=== PATIENT | female | born 1960 | race Hispanic/Latino ===

== ENCOUNTER 2021-01-29 23:12 | Emergency (ER) | payer SELFPAY ==
--- OUTSIDE RECORDS SUMMARY | 2021-01-29 23:15 | XMS REPORT | Continuity of Care Document ---
:1960 Author Organization [facility] t Address [address] [place] [address] Care Team Providers Name Role Phone Joe GABRIEL, Iveth Wooten Attending Clinician Unavailable Mike Boogie Attending Clinician Lit Brower Attending Clinician Darlene HARRINGTON Attending Clinician Salvador BELTRAN S Attending Clinician Problems This patient has no known problems. Allergies, Adverse Reactions, Alerts This patient has no known allergies or adverse reactions. Medications This patient has no known medications. Procedures This patient has no known procedures. Encounters Start End Encounter Admission Attending Care Care Encounter Source Date/Time Date/Time Type Type Clinicians Facility Department ID 2020-04-20 2020-04-20 Letter GYPSY Diaz [id number] 00:00:00 00:00:00 (Out) Iveth FLEMING [id number] [facility] [id number] 2020-04-20 2020-04-20 Telephone GYPSY Boogie [id number] 00:00:00 00:00:00 Carlos Alberto FLEMING [id number] [facility] [id number] 2020-04-19 2020-04-19 Telephone OLGA LIDIA Torres [id number] 00:00:00 00:00:00 Marisol [facility] [id number] Specialty [id number] [place] [id number] [address] 2020-04-15 2020-04-16 Emergency Gilles Colon [facility] [id number] 23:44:00 01:57:00 Juli Franco [id number] [place] [id number] [place] [id number] Results This patient has no known results.
[2021-01-30] MEDS ORDERED: D50W 25 GM/50 ML SYRINGE IV ONE (00:20)
[2021-01-30 00:30] LABS: Protime INR 0.96
[2021-01-30 00:31] LABS: Absolute Lymphocytes (CBC) 3.6 K/uL (0.7-4.9); Basophils % 0.5 % (0-1.3); Hematocrit 29.1 % (36.0-45.0); Lymphocytes % 25.9 % (15.3-44.8); MPV 8.5 fL (7.6-11.3); RBC Red Blood Cell Count 3.56 M/uL (3.86-4.86)
[2021-01-30 00:47] LABS: ALT/SGPT 29 U/L (12-78); AST/SGOT 20 U/L (15-37); Albumin 4.1 g/dL (3.4-5.0); Alkaline Phosphatase 107 U/L (45-117); BUN Blood Urea Nitrogen 31 mg/dL (7-18); Bicarbonate 27 mmol/L (21-32); Bilirubin Direct < 0.1 mg/dL (0-0.2); Bilirubin Total 0.3 mg/dL (0.2-1.0); Magnesium 1.7 mg/dL (1.8-2.4); NT PRO-BNP 196 pg/mL (<125); Potassium 3.8 mmol/L (3.5-5.1); Protein, Total 8.7 g/dL (6.4-8.2); Sodium Level 127 mmol/L (136-145); Troponin (Emerg Dept Use Only) < 0.02 ng/mL (0.0-0.045)
[2021-01-30 00:48] LABS: Glucose Level 47 mg/dL (74-106)
--- NOTE | 2021-01-30 02:22 | EDPHYS ---
Physician Documentation [facility] Name: Belinda Hector Age: 60 yrs Sex: Female : 1960 Arrival Date: 01/29/2021 Time: 23:13 Bed 5 Private MD: Carlos Alberto Boogie ED Physician Elie Ward HPI: 01/30 02:22 This 60 yrs old Female presents to ER via Unassigned with complaints of Low tw4 Blood Sugar, Confusion, Vomiting. 02:22 The patient or guardian reports hypoglycemia. Onset: The symptoms/episode tw4 began/occurred today. Associated signs and symptoms: Pertinent positives: None. Current symptoms: In the emergency department the patient's symptoms are unchanged from the initial presentation. The patient has not experienced similar symptoms in the past. Historical: - Home Meds: 00:15 atorvastatin 10 mg Oral tab 1 tab once daily [Active]; lisinopril 20 mg Oral tab 1 tab lp1 once daily [Active]; metformin 1,000 mg Oral TG24 1 tab 2 times per day [Active]; glyburide 5 mg Oral tab 1 tab 2 times per day [Active]; - PMHx: 00:15 Diabetes - NIDDM; Hypertension; lp1 - Immunization history:: Adult Immunizations up to date. - Social history:: Smoking status: Patient denies any tobacco usage or history of. ROS: 02:22 Constitutional: Negative for fever, chills, and weight loss, Eyes: Negative for injury, tw4 pain, redness, and discharge, Cardiovascular: Negative for chest pain, palpitations, and edema, Respiratory: Negative for shortness of breath, cough, wheezing, and pleuritic chest pain, Back: Negative for injury and pain, MS/Extremity: Negative for injury and deformity. 02:22 Abdomen/GI: Positive for nausea and vomiting, nausea, vomiting, and diarrhea, nausea, vomiting. 02:22 Neuro: Positive for altered mental status. 02:22 Endocrine: Negative for goiter, cold intolerance, heat intolerance, polydipsia, polyphagia, polyuria, weight gain, weight loss. Exam: 02:22 Constitutional: This is a well developed, well nourished patient who is awake, alert, tw4 and in no acute distress. Head/Face: Normocephalic, atraumatic. Chest/axilla: Normal chest wall appearance and motion. Nontender with no deformity. No lesions are appreciated. Cardiovascular: Regular rate and rhythm with a normal S1 and S2. No gallops, murmurs, or rubs. Normal PMI, no JVD. No pulse deficits. Respiratory: Lungs have equal breath sounds bilaterally, clear to auscultation and percussion. No rales, rhonchi or wheezes noted. No increased work of breathing, no retractions or nasal flaring. Abdomen/GI: Soft, non-tender, with normal bowel sounds. No distension or tympany. No guarding or rebound. No evidence of tenderness throughout. Back: No spinal tenderness. No costovertebral tenderness. Full range of motion. Skin: Warm, dry with normal turgor. Normal color with no rashes, no lesions, and no evidence of cellulitis. MS/ Extremity: Pulses equal, no cyanosis. Neurovascular intact. Full, normal range of motion. Neuro: Awake and alert, GCS 15, oriented to person, place, time, and situation. Cranial nerves II-XII grossly intact. Motor strength 5/5 in all extremities. Sensory grossly intact. Cerebellar exam normal. Normal gait. Vital Signs: 01/29 23:46 BP 163 / 83; Pulse 98; Resp 16; Pulse Ox 98% ; iw 01/30 01:30 BP 139 / 80; Pulse 100; Resp 18; Pulse Ox 99% ; ea 02:34 BP 163 / 70; Pulse 100; Resp 18; Pulse Ox 100% ; ea MDM: 01/29 23:52 Patient medically screened. tw4 01/30 02:25 Differential diagnosis: Ming's syndrome, diabetes insipidus, DKA. Data reviewed: tw4 vital signs, nurses notes. Data interpreted: Pulse oximetry: Interpretation: normal. Counseling: I had a detailed discussion with the patient and/or guardian regarding: the historical points, exam findings, and any diagnostic results supporting the discharge/admit diagnosis. Special discussion: I discussed with the patient/guardian in detail that at this point there is no indication for admission to the hospital. It is understood, however, that if the symptoms persist or worsen the patient needs to return immediately for re-evaluation. 01/30 00:01 Order name: Basic Metabolic Panel; Complete Time: 00:52 tw4 01/30 00:01 Order name: CBC with Diff; Complete Time: 01:59 01/30 01:59 Interpretation: Normal except: WBC 13.80; RBC 3.56; HGB 10.3; HCT 29.1. 01/30 00:01 Order name: LFT's; Complete Time: 01:59 01/30 01:59 Interpretation: Normal except: TP 8.7; GLOB 4.6; A/G 0.9. 01/30 00:01 Order name: Magnesium; Complete Time: 01:59 01/30 01:59 Interpretation: Normal except: MG 1.7. 01/30 00:01 Order name: NT PRO-BNP; Complete Time: 01:59 01/30 01:59 Interpretation: Normal except: NT PRO-BNP 196. 01/30 00:01 Order name: PT-INR; Complete Time: 01:59 01/30 01:59 Interpretation: Within normal limits: PT 11.0. 01/30 00:01 Order name: Troponin (emerg Dept Use Only); Complete Time: :59 01/30 02:00 Interpretation: Within normal limits: TROPED < 0.02. 01/30 00:01 Order name: XRAY Chest (1 view) 01/30 00:01 Order name: EKG; Complete Time: 00:02 01/30 00:03 Order name: Glucose, Ancillary Testing; Complete Time: 01:04 [facility] 01/30 00:08 Order name: Glucose, Ancillary Testing [facility] 01/30 00:55 Order name: Glucose, Ancillary Testing [facility] 01/30 02:11 Order name: Glucose, Ancillary Testing [facility] 01/30 00:01 Order name: Cardiac monitoring; Complete Time: 00:46 01/30 00:01 Order name: EKG - Nurse/Tech; Complete Time: 01:16 01/30 00:01 Order name: IV Saline Lock; Complete Time: 00:46 01/30 00:01 Order name: Labs collected and sent; Complete Time: 00:46 01/30 00:01 Order name: O2 Per Protocol; Complete Time: 00:46 01/30 00:01 Order name: O2 Sat Monitoring; Complete Time: 00:46 tw4 EC:41 Rate is 101 beats/min. Rhythm is regular. QRS [place] is Normal. DE interval is normal. tw4 QRS interval is normal. QT interval is normal. No Q waves. T waves are Peaked in leads V3, V4, V5, V6. No ST changes noted. Clinical impression: NSR w/ Non-specific ST/T Changes. Interpreted by me. Reviewed by me. Administered Medications: 00:00 Drug: D50W 50 ml {Note: Verbal order per Dr. Ward.} Route: IVP; Site: right lp1 antecubital; 01:11 Follow up: Response: Blood sugar is elevated lp1 Disposition: 01/30/21 02:22 Discharged to Home. Impression: Hypoglycemia, unspecified, Vomiting, unspecified. - Condition is Stable. - Discharge Instructions: Hypoglycemia, Nausea and Vomiting, Adult. - Prescriptions for Zofran 4 mg Oral Tablet - take 1 tablet by ORAL route every 12 hours As needed; 6 tablet. - Medication Reconciliation Form, Thank You Letter, Antibiotic Education, Prescription Opioid Use form. - Follow up: Carlos Alberto Boogie MD; When: Upon discharge from the Emergency Department; Reason: Recheck today's complaints, Continuance of care, Re-evaluation by your physician. - Problem is new. - Symptoms have improved. Signatures: Dispatcher [employer] EDMS Malena Castorena RN RN lp1 Riley Bush, INTERVENTION NURSE-C INTERVENTION NURSE-Cla1 Rica Carr RN RN ea Wadley, Terrence, MD MD tw4 Corrections: (The following items were deleted from the chart) 02:53 02:22 01/30/2021 02:22 Discharged to Home. Impression: Hypoglycemia, unspecified; ea Vomiting, unspecified. Condition is Stable. Forms are Medication Reconciliation Form, Thank You Letter, Antibiotic Education, Prescription Opioid Use. Follow up: Carlos Alberto Boogie; When: Upon discharge from the Emergency Department; Reason: Recheck today's complaints, Continuance of care, Re-evaluation by your physician. Problem is new. Symptoms have improved. tw4
--- NOTE | 2021-01-30 02:22 | ER ---
Nurse's Notes [facility] Name: Belinda Hector Age: 60 yrs Sex: Female : 1960 Arrival Date: 01/29/2021 Time: 23:13 Bed 5 Private MD: Carlos Alberto Boogie Diagnosis: Hypoglycemia, unspecified;Vomiting, unspecified Presentation: 01/29 23:46 Chief complaint: Patient states: Patient go got confused so they checked her blood iw sugar 42. [place]vier juice given. Tried to eat pizza but then started vomiting. Blood sugar now is 40. 23:46 Acuity: AMARILIS 2 iw 01/30 00:00 Coronavirus screen: At this time, the client does not indicate any symptoms associated ea with coronavirus-19. Ebola Screen: No symptoms or risks identified at this time. Initial Sepsis Screen: Does the patient meet any 2 criteria? No. Patient's initial sepsis screen is negative. Does the patient have a suspected source of infection? No. Patient's initial sepsis screen is negative. Risk Assessment: Do you want to hurt yourself or someone else? Patient reports no desire to harm self or others. Onset of symptoms was January 30, 2021. Historical: - Home Meds: 00:15 atorvastatin 10 mg Oral tab 1 tab once daily [Active]; lisinopril 20 mg Oral tab 1 tab lp1 once daily [Active]; metformin 1,000 mg Oral TG24 1 tab 2 times per day [Active]; glyburide 5 mg Oral tab 1 tab 2 times per day [Active]; - PMHx: 00:15 Diabetes - NIDDM; Hypertension; lp1 - Immunization history:: Adult Immunizations up to date. - Social history:: Smoking status: Patient denies any tobacco usage or history of. Screenin:11 Abuse screen: Denies threats or abuse. Denies injuries from another. Nutritional lp1 screening: No deficits noted. Tuberculosis screening: No symptoms or risk factors identified. Fall Risk Total Harrison Fall Scale indicates High Risk Score (45 or more points). Fall prevention measures have been instituted. Side Rails Up X 2 Family Present and informed to notify staff if the need to leave the bedside As available patient and family educated on Fall Prevention Program and Strategies. Assessment: 00:10 General: Appears ill, Behavior is quiet. Pain: Denies pain. Neuro: Level of lp1 Consciousness is awake, confused, Oriented to person, place. Cardiovascular: Capillary refill < 3 seconds in bilateral fingers toes. Respiratory: Respiratory effort is even, unlabored. GI: Abdomen is non-distended, Patient currently denies nausea. : No signs and/or symptoms were reported regarding the genitourinary system. EENT: No signs and/or symptoms were reported regarding the EENT system. Derm: Skin is intact, Skin is clammy, Skin is pale. Musculoskeletal: No deficits noted. 01:50 Reassessment: Patient and/or family updated on plan of care and expected duration. Pain ea level reassessed. Patient is alert, oriented x 3, equal unlabored respirations, skin warm/dry/pink. 02:13 Reassessment: Patient and/or family updated on plan of care and expected duration. Pain ea level reassessed. Patient is alert, oriented x 3, equal unlabored respirations, skin warm/dry/pink. Pt eating sandwich and jello Patient states feeling better. 02:51 Reassessment: Patient and/or family updated on plan of care and expected duration. Pain ea level reassessed. Patient is alert, oriented x 3, equal unlabored respirations, skin warm/dry/pink. Discharge instruction given to patient verbalized the understanding of instruction. Pt left ED ambulatory tolerating well. Vital Signs: 01/29 23:46 BP 163 / 83; Pulse 98; Resp 16; Pulse Ox 98% ; iw 01/30 01:30 BP 139 / 80; Pulse 100; Resp 18; Pulse Ox 99% ; ea 02:34 BP 163 / 70; Pulse 100; Resp 18; Pulse Ox 100% ; ea ED Course: 01/29 23:13 Patient arrived in ED. es 23:14 Carlos Alberto Boogie MD is Private Physician. es 23:49 Triage completed. iw 23:52 Elie Ward MD is Attending Physician. tw4 01/30 00:00 Inserted saline lock: 20 gauge in right antecubital area, using aseptic technique. lp1 Blood collected. 00:09 Malena Castorena, RN is Primary Nurse. lp1 00:11 Patient has correct armband on for positive identification. Placed in gown. Bed in low lp1 position. Call light in reach. Pulse ox on. NIBP on. 00:15 Arm band placed on right wrist. Patient placed in an exam room, on a stretcher, on ea pulse oximetry. 00:41 XRAY Chest (1 view) In Process Unspecified. EDMS 02:20 Carlos Alberto Boogie MD is Referral Physician. tw4 02:35 No provider procedures requiring assistance completed. ea 02:51 IV discontinued, intact, bleeding controlled, No redness/swelling at site. Pressure ea dressing applied. Administered Medications: 00:00 Drug: D50W 50 ml {Note: Verbal order per Dr. Ward.} Route: IVP; Site: right lp1 antecubital; 01:11 Follow up: Response: Blood sugar is elevated lp1 Outcome: 02:22 Discharge ordered by . tw4 02:50 Discharged to home ambulatory, with family. ea 02:50 Condition: stable 02:50 Discharge instructions given to patient, Instructed on discharge instructions, follow up and referral plans. Demonstrated understanding of instructions, Prescriptions given X 1. 02:53 Patient left the ED. ea Signatures: Dispatcher [employer] Sharon Ross Irene, RN NERY Malena Castorena RN RN lp1 Rica Carr RN RN Elie Galicia MD MD tw4
[2021-01-30 03:10] VITALS: BP 163/70; O2SAT 100
--- NOTE | 2021-01-30 10:30 | RAD REPORT ---
EXAM DESCRIPTION: Nena Single View01/30/2021 12:41 am CLINICAL HISTORY: Vomiting COMPARISON: 2017 FINDINGS: The lungs appear clear of acute infiltrate. The heart is normal size IMPRESSION: No acute abnormalities displayed
--- NOTE | 2021-02-01 12:04 | EKG ---
Test Date: 2021-01-30 Test Time: 01:11:32 Signaling Design Engineer: SABINO MEASUREMENT RESULTS: Intervals: Rate: 101 [place]: 130 QRSD: 114 QT: 358 QTc: 464 [place]: P: 50 [place]: 130 QRS: 10 T: 47 INTERPRETIVE STATEMENTS: Sinus tachycardia Incomplete right bundle branch block Possible Inferior infarct, age undetermined Abnormal ECG Compared to ECG 10/31/2017 20:13:31 Incomplete right bundle-branch block now present Myocardial infarct finding now present Right bundle-branch block no longer present Electronically Signed On 02-01-21 11:54:53 CDT by Nba Castillo
== END 2021-01-30 02:53 | disposition home or self-care (01) ==
LOC: ER 23:12
DX: E11.649 Type 2 diabetes mellitus with hypoglycemia without coma (principal); I10 Essential (primary) hypertension
CPT/HCPCS: 36415; 71045; 80048; 80076; 82947; 83735; 83880; 84484; 85025; 85610; 93005; 96374; 99284

== ENCOUNTER 2022-01-27 23:11 | Emergency (ER) | payer SELFPAY ==
--- OUTSIDE RECORDS SUMMARY | 2022-01-27 23:14 | XMS REPORT | Continuity of Care Document ---
:1960 [address] [facility] Address [address] [place] [address] Care Team Providers Name Role Phone Iveth Diaz RN Attending Clinician Unavailable Mike Boogie Attending Clinician Brian HARRINGTON, F Attending Clinician Ana ROSEP Attending Clinician Salvador BELTRAN S Attending Clinician ANA Attending Clinician Unavailable Problems Condition Condition Condition Status Onset Resolution Last Treating Co mments Source Name Details Category Date Date Treatment Clinician Date No known No known Disease Unive rs active active ity of problems problems [facility] Allergies, Adverse Reactions, Alerts Allergy Allergy Status Severity Reaction(s) Onset Inactive Treating Comm ents Source Name Type Date Date Clinician NO KNOWN Drug Active Univers ALLERGIE Class ity of [facility] Social History Social Habit Start Date Stop Date Quantity Comments Source [facility] to SARS-CoV-2 Not sure [facility] [place] (event) [facility] Smoking Status Start Date Stop Date Source Unknown if ever smoked [facility]it y [facility] Medications Ordered Filled Start Stop Current Ordering Indication Dosage Frequency Signature Comments Components Source Medication Medication Date Date Medication? Clinician (SIG) Name Name No known No Univers medications [facility] No known No Univers medications [facility] No known No Univers medications [facility] No known No Univers medications [facility] Vital Signs Vital Name Observation Time Observation Value Comments Source Systolic blood 2020-04-16 06:41:30 139 mm[Hg] Univer sity of [facility] Diastolic blood 2020-04-16 06:41:30 77 mm[Hg] Unive rsity of [facility] Heart rate 2020-04-16 06:41:30 105 /min [facility] [place] [facility] Respiratory rate 2020-04-16 06:41:30 16 /min [facility] [place] [facility] Oxygen saturation in 2020-04-16 06:41:30 99 /min University of Arterial blood by [facility] melvin Pulse oximetry Branch Body temperature 2020-04-16 04:38:00 37.22 Shaye [facility] [place] [facility] Body height 2020-04-16 04:38:00 152.4 cm [facility] [place] [facility] Body weight 2020-04-16 04:38:00 45.36 kg [facility] [place] [facility] BMI 2020-04-16 04:38:00 19.53 kg/m2 [facility] Systolic blood 2020-04-16 06:41:30 139 mm[Hg] Univer sity of [facility] Diastolic blood 2020-04-16 06:41:30 77 mm[Hg] Unive rsity of pressure [facility] Heart rate 2020-04-16 06:41:30 105 /min [facility] [place] [facility] Respiratory rate 2020-04-16 06:41:30 16 /min [facility] [place] [facility] Oxygen saturation in 2020-04-16 06:41:30 99 /min [facility] Arterial blood by [facility] melvin Pulse oximetry Branch Body temperature 2020-04-16 04:38:00 37.22 Shaye [facility] [place] [facility] Body height 2020-04-16 04:38:00 152.4 cm [facility] [place] [facility] Body weight 2020-04-16 04:38:00 45.36 kg [facility] [place] [facility] BMI 2020-04-16 04:38:00 19.53 kg/m2 [facility] Branch Procedures Procedure Date / Time Performed Performing Clinician Sourc e RAPID STREP SCREEN 2020-04-16 05:33:00 Juli Franco [facility] FOR GROUP A Medical Branch NOTICE OF PRIVACY 2020-04-16 04:29:46 Doctor Unassigned, No Univ ersity [facility] PRACTICES Name Medical Branch CONSENT/REFUSAL FOR 2020-04-16 04:29:23 [facility], [facility] AND Name Medical Branch TREATMENT Encounters Start End Encounter Admission Attending Care Care Encounter Source Date/Time Date/Time Type Type Clinicians Facility Department ID 2020-04-20 2020-04-20 Letter GYPSY Diaz [id number] 00:00:00 00:00:00 (Out) Iveth Wooten LONNIE [id number] [facility] [id number] 2020-04-20 2020-04-20 Letter GYPSY Diaz [id number] [facility] 00:00:00 00:00:00 (Out) Iveth Wooten LONNIE [id number] it y of HOSPITAL [id number] Carlos as [id number] [address] 2020-04-20 2020-04-20 Telephone GYPSY Boogie [id number] [facility] 00:00:00 00:00:00 Carlos Alberto A LONNIE [id number] ity of [facility] [id number] Carlos as [id number] [address] 2020-04-20 2020-04-20 Telephone GYPSY Boogie [id number] 00:00:00 00:00:00 Carlos Alberto A LONNIE [id number] HOSPITAL [id number] 019 2020-04-19 2020-04-19 Telephone Human, [facility] [id number] [facility] 00:00:00 00:00:00 [facility]isol [facility] [id number] ity of Specialty [id number] [place] [facility] - [id number] [place] [address] Branch 2020-04-19 2020-04-19 Telephone Human, [facility] [id number] 00:00:00 00:00:00 Marisol [facility] [id number] Specialty [id number] Care - [id number] [place] [address] 2020-04-15 2020-04-16 Emergency Gilles Colon RUST [id number] Univers 23:44:00 01:57:00 Juli Francoton [id number] itfrancoise [place] [id number] [facility] [id number] [address] 2020-04-15 2020-04-16 Emergency Gilles Colon [facility] 1.2.840. [id number] 23:44:00 01:57:00 Juli Francoton [id number] [place] [id number] [place] [id number] [facility] 2020-04-15 2020-04-15 Emergency X ANA RUST ERT [id number] Univers 23:23:00 23:23:00 [facility] Results Test Description Test Time Test Comments Results Result Comments Source RAPID STREP SCREEN FOR GROUP A 2020-04-16 06:04:00 Test Item Value Reference Range Interpretation Comme nts Streptococcus pyogenes (group A) antigen (test code = 73352- 2) Negative Negative Lab Interpretation (test code = 70887-0) Normal [facility]
[2022-01-27] MEDS ORDERED: D10W 250 ML IV ONE (23:43)
[2022-01-27] MEDS ORDERED: GLUCAGON 1 MG/VIAL ONE (23:43)
[2022-01-27] MEDS ORDERED: HYDROCORTISONE SUC 100 MG INJ ONE (23:43)
[2022-01-27] MEDS ORDERED: ONDANSETRON 4 MG/2 ML VIAL ONE (23:56)
[2022-01-28 00:03] LABS: Potassium 3.3 mmol/L (3.5-5.1)
[2022-01-28 00:53] LABS: Urine Blood Trace-intact (Negative); Urine Glucose 1+ (Negative); Urine Protein Negative (Negative)
[2022-01-28 01:27] LABS: Urine Bacteria LOADED /HPF (<20); Urine Mucus 1+ /HPF (NONE SEEN); Urine RBC <5 /HPF (NONE SEEN)
[2022-01-28] MEDS ORDERED: NA CHLORIDE 0.9% 500 ML ONE (02:43)
[2022-01-28] MEDS ORDERED: CIPROFLOXACIN 400mg IV 400 MG/200 ML BAG IV ONE (02:43)
--- NOTE | 2022-01-28 03:38 | EDPHYS ---
Physician Documentation [facility] Name: Belinda Hector Age: 61 yrs Sex: Female : 1960 Arrival Date: 01/27/2022 Time: 23:20 Bed 4 Private MD: ED Physician Khang Lowery HPI: 01/28 00:45 This 61 yrs old Female presents to ER via Wheelchair with complaints of Low rn Blood Sugar. 00:45 Onset: The symptoms/episode began/occurred last night. Associated signs and symptoms: rn Pertinent negatives: diaphoresis, polyuria, seizure activity, urinary incontinence. Current symptoms: In the emergency department the patient's symptoms are unchanged from the initial presentation. The patient has experienced similar episodes in the past. The patient has not recently seen a physician. Family member reports they were checking patient's blood sugar last night, checks every night, and glucose was 21. Gave her some of a cupcake, but didn't wake completely up. Pt denies fever/chest pain/sob/abd pain/vomiting/diarrhea. Does not feel sick. Has had multiple episodes of hypoglycemia before. . Historical: - Allergies: 01/27 23:34 Rocephin; ld1 - PMHx: 23:34 Diabetes - IDDM; Hypertension; ld1 - Immunization history:: Adult Immunizations up to date, Client reports having NOT received the Covid vaccine. - Social history:: Smoking status: Patient denies any tobacco usage or history of. Patient/guardian denies using alcohol. - Family history:: not pertinent. - Hospitalizations: : No recent hospitalization is reported. ROS: 01/28 00:45 Constitutional: Negative for fever, chills, and weight loss, Eyes: Negative for injury, rn pain, redness, and discharge, Neck: Negative for injury, pain, and swelling, Cardiovascular: Negative for chest pain, palpitations, and edema, Respiratory: Negative for shortness of breath, cough, wheezing, and pleuritic chest pain, Abdomen/GI: Negative for abdominal pain, nausea, vomiting, diarrhea, and constipation, Back: Negative for injury and pain, MS/Extremity: Negative for injury and deformity, Skin: Negative for injury, rash, and discoloration, Neuro: Negative for headache, weakness, numbness, tingling, and seizure. Exam: 00:45 Constitutional: This is a well developed, well nourished patient who is awake, rn somnolent but arousable to voice. Answers all questions. Head/Face: Normocephalic, atraumatic. Eyes: Periorbital areas with no swelling, redness, or edema. ENT: dry MM Neck: Trachea midline, no thyromegaly or masses palpated, and no cervical lymphadenopathy. Supple, full range of motion without nuchal rigidity, or vertebral point tenderness. No Meningismus. Cardiovascular: Regular rate and rhythm. No pulse deficits. Respiratory: No increased work of breathing, no retractions or nasal flaring. Abdomen/GI: Soft, non-tender Skin: Warm, dry MS/ Extremity: Pulses equal, no cyanosis. Neurovascular intact. Full, normal range of motion. Equal circumference. Neuro: Awake, GCS 15, oriented to person, place, time, and situation. Cranial nerves II-XII grossly intact. Motor strength 5/5 in all extremities. Sensory grossly intact. Cerebellar exam normal. Vital Signs: 01/27 23:31 BP 146 / 86; Pulse 92; Resp 18; Temp 97.6(TE); Pulse Ox 100% on R/A; Weight 65.77 kg; ld1 Height 5 ft. 0 in. (152.40 cm); Pain 0/10; 01/28 00:52 BP 145 / 75; Pulse 101; Resp 16; Pulse Ox 100% on R/A; lg3 02:33 Pulse 98; rn 02:47 BP 115 / 55; Pulse 101; Resp 16; Pulse Ox 99% on R/A; lg3 01/27 23:31 Body Mass Index 28.32 (65.77 kg, 152.40 cm) ld1 MDM: 01/27 23:21 Patient medically screened. rn 01/28 00:48 ED course: Glucose > 250 now, ambulatory to bathroom, feels much better, will continue rn to observe for stability of glucose. . 03:35 Differential diagnosis: hypoglycemic episode, UTI, metabolic disorder. Data reviewed: rn vital signs, nurses notes, lab test result(s), and as a result, I will discharge patient. Counseling: I had a detailed discussion with the patient and/or guardian regarding: the historical points, exam findings, and any diagnostic results supporting the discharge/admit diagnosis, lab results, the need for outpatient follow up, to return to the emergency department if symptoms worsen or persist or if there are any questions or concerns that arise at home. Response to treatment: the patient's symptoms have markedly improved after treatment, and as a result, I will discharge patient. Special discussion: I discussed with the patient/guardian in detail that at this point there is no indication for admission to the hospital. It is understood, however, that if the symptoms persist or worsen the patient needs to return immediately for re-evaluation. Based on the history and exam findings, there is no indication for further emergent testing or inpatient evaluation. I discussed with the patient/guardian the need to see the primary care provider for further evaluation of the symptoms. ED course: . 01/27 23:34 Order name: Basic Metabolic Panel; Complete Time: 02:18 01/27 23:34 Order name: Urine Microscopic Only; Complete Time: 02:18 01/27 23:34 Order name: Procalcitonin; Complete Time: 02:18 01/27 23:48 Order name: Glucose, Ancillary Testing; Complete Time: 02:18 [facility] 01/28 00:54 Order name: Urine Dipstick-Ancillary; Complete Time: 02:18 [facility] 01/28 00:58 Order name: Glucose, Ancillary Testing; Complete Time: 02:18 [facility] 01/28 01:30 Order name: Urine Culture [facility] 01/28 03:47 Order name: Glucose, Ancillary Testing [facility] 01/27 23:34 Order name: IV Start; Complete Time: 23:45 rn 01/27 23:34 Order name: Urine Dipstick-Ancillary (obtain specimen); Complete Time: 00:40 rn 01/27 23:34 Order name: Glucose Level; Complete Time: 23:45 rn 01/27 23:34 Order name: Cardiac monitoring; Complete Time: 23:45 rn 01/27 23:34 Order name: O2 Sat Monitoring; Complete Time: 23:45 rn Administered Medications: 01/27 23:34 CANCELLED (Duplicate Order): HydroCORTISONE 100 mg IVP once rn 23:43 Drug: D10 in Water [2 mL/kg] 250 ml Route: IVP; Site: right antecubital; lg3 23:48 Follow up: Response: No adverse reaction lg3 23:44 Drug: GlucaGen (glucagon) 1 mg Route: IVP; Site: right antecubital; lg3 23:49 Follow up: Response: No adverse reaction lg3 23:44 Drug: HydroCORTISONE 50 mg Route: IVP; Site: right antecubital; lg3 23:48 Follow up: Response: No adverse reaction lg3 23:45 Not Given (med not avaliable ): D50W 50 ml IVP once; (1 amp) lg3 23:54 Drug: Zofran (Ondansetron) 4 mg Route: IVP; Site: right antecubital; lg3 23:54 Follow up: Response: No adverse reaction lg3 01/28 02:46 Drug: Cipro (ciprofloxacin) 400 mg Volume: 200 ml; Route: IVPB; Infused Over: 60 mins; lg3 Site: right antecubital; 03:54 Follow up: Response: No adverse reaction; IV Status: Completed infusion; IV Intake: lg3 200ml 02:46 Drug: NS 0.9% 500 ml Route: IV; Rate: bolus; Site: right antecubital; lg3 03:53 Follow up: Response: No adverse reaction; IV Status: Completed infusion; IV Intake: lg3 500ml Disposition Summary: 01/28/22 03:37 Discharge Ordered Location: Home rn Problem: new rn Symptoms: have improved rn Condition: Stable rn Diagnosis - Hypoglycemia, unspecified rn - UTI/ Urinary tract infection, site not specified rn Followup: rn - With: Private Physician - When: As needed - Reason: Recheck today's complaints, Re-evaluation by your physician Discharge Instructions: - Discharge Summary Sheet rn - Hypoglycemia rn - Urinary Tract Infection, Adult rn - Blood Glucose Monitoring, Adult rn Forms: - Medication Reconciliation Form rn - Thank You Letter rn - Antibiotic burnisher and bumper - Prescription Opioid Use rn Prescriptions: - Cipro 500 mg Oral Tablet - take 1 tablet by ORAL route every 12 hours for 10 days; 20 tablet; Refills: 0, rn Product Selection Permitted Signatures: Dispatcher [employer] Khang Arizmendi MD MD rn Gibson, Lacie RN RN lg3 Carla Geller, RN RN ld1 Katelin Siddiqi, RN RN ll3 Corrections: (The following items were deleted from the chart) 01/27 23:34 23:34 HydroCORTISONE 100 mg IVP once ordered. rn rn
--- NOTE | 2022-01-28 03:38 | ER ---
Nurse's Notes [facility] Name: Belinda Hector Age: 61 yrs Sex: Female : 1960 Arrival Date: 01/27/2022 Time: 23:20 Bed 4 Private MD: Diagnosis: Hypoglycemia, unspecified;UTI/ Urinary tract infection, site not specified Presentation: 01/27 23:31 Chief complaint: Patient's son or daughter states: My mom began acting confused ld1 tonight. Daughter reports taking pts blood glucose level at home and it was 21 - pt ate half of a cupcake and came to the ER. Upon arrival to ER pt reporting confusion, fatigue. Coronavirus screen: At this time, the client does not indicate any symptoms associated with coronavirus-19. Ebola Screen: No symptoms or risks identified at this time. Initial Sepsis Screen: Does the patient meet any 2 criteria? No. Patient's initial sepsis screen is negative. Does the patient have a suspected source of infection? No. Patient's initial sepsis screen is negative. Risk Assessment: Do you want to hurt yourself or someone else? Patient reports no desire to harm self or others. Onset of symptoms was January 27, 2022. 23:31 Method Of Arrival: Wheelchair ld1 23:31 Acuity: AMARILIS 3 ld1 Triage Assessment: 23:34 General: Appears in no apparent distress. comfortable, Behavior is cooperative, ld1 appropriate for age, drowsy. Pain: Denies pain. EENT: No signs and/or symptoms were reported regarding the EENT system. Neuro: Level of Consciousness is awake, alert, obeys commands, Oriented to person, place, time, situation, Reports weakness. Cardiovascular: Capillary refill < 3 seconds Patient's skin is warm and dry. Rhythm is regular Chest pain. Respiratory: Airway is patent Respiratory effort is even, unlabored. Historical: - Allergies: 23:34 Rocephin; ld1 - PMHx: 23:34 Diabetes - IDDM; Hypertension; ld1 - Immunization history:: Adult Immunizations up to date, Client reports having NOT received the Covid vaccine. - Social history:: Smoking status: Patient denies any tobacco usage or history of. Patient/guardian denies using alcohol. - Family history:: not pertinent. - Hospitalizations: : No recent hospitalization is reported. Screenin:46 Abuse screen: Denies threats or abuse. Denies injuries from another. Nutritional lg3 screening: No deficits noted. Tuberculosis screening: No symptoms or risk factors identified. Fall Risk None identified. Assessment: 23:46 General: Appears in no apparent distress. uncomfortable, Behavior is cooperative, flat. lg3 Pain: Denies pain. Neuro: No deficits noted. Galvan Agitation-Sedation Scale (RASS): -1 Drowsy Level of Consciousness is obeys commands, lethargic, Oriented to person, place, time, situation. Cardiovascular: No deficits noted. Denies chest pain, shortness of breath. Respiratory: No deficits noted. Airway is patent Trachea midline Respiratory effort is even, unlabored, Respiratory pattern is regular, symmetrical. GI: No deficits noted. No signs and/or symptoms were reported involving the gastrointestinal system. Abdomen is flat, non-distended. : No deficits noted. No signs and/or symptoms were reported regarding the genitourinary system. EENT: No deficits noted. No signs and/or symptoms were reported regarding the EENT system. Derm: No deficits noted. No signs and/or symptoms reported regarding the dermatologic system. Skin is intact, is healthy with good turgor, Skin is dry, Skin is pink, warm \T\ dry. Musculoskeletal: No deficits noted. No signs and/or symptoms reported regarding the musculoskeletal system. Circulation, motion, and sensation intact. Capillary refill < 3 seconds, Range of motion: intact in all extremities. 01/28 00:52 Reassessment: Patient appears in no apparent distress at this time. Patient and/or lg3 family updated on plan of care and expected duration. Pain level reassessed. Patient is alert, oriented x 3, equal unlabored respirations, skin warm/dry/pink. Patient states symptoms have improved. 02:47 Reassessment: Patient appears in no apparent distress at this time. No changes from lg3 previously documented assessment. Patient and/or family updated on plan of care and expected duration. Pain level reassessed. Patient is alert, oriented x 3, equal unlabored respirations, skin warm/dry/pink. Patient states feeling better. Patient states symptoms have improved. 03:53 Reassessment: Patient appears in no apparent distress at this time. No changes from lg3 previously documented assessment. Patient and/or family updated on plan of care and expected duration. Pain level reassessed. Patient is alert, oriented x 3, equal unlabored respirations, skin warm/dry/pink. Patient denies pain at this time. Patient states feeling better. Patient states symptoms have improved. Vital Signs: 01/27 23:31 BP 146 / 86; Pulse 92; Resp 18; Temp 97.6(TE); Pulse Ox 100% on R/A; Weight 65.77 kg; ld1 Height 5 ft. 0 in. (152.40 cm); Pain 0/10; 01/28 00:52 BP 145 / 75; Pulse 101; Resp 16; Pulse Ox 100% on R/A; lg3 02:33 Pulse 98; rn 02:47 BP 115 / 55; Pulse 101; Resp 16; Pulse Ox 99% on R/A; lg3 01/27 23:31 Body Mass Index 28.32 (65.77 kg, 152.40 cm) ld1 ED Course: 01/27 23:20 Patient arrived in ED. bp1 23:21 Khang Lowery MD is Attending Physician. rn 23:34 Triage completed. ld1 23:34 Arm band placed on right wrist. ld1 23:43 Keyana Ron, RN is Primary Nurse. lg3 23:45 Procalcitonin Sent. lg3 23:45 Basic Metabolic Panel Sent. lg3 23:45 Inserted saline lock: 20 gauge in right antecubital area, using aseptic technique. lg3 Blood collected. 23:46 Patient has correct armband on for positive identification. Bed in low position. Call lg3 light in reach. Side rails up X2. Client placed on continuous cardiac and pulse oximetry monitoring. NIBP monitoring applied. vehicle monitor technician on. Door closed. Noise minimized. Warm blanket given. Family accompanied patient. 01/28 03:53 No provider procedures requiring assistance completed. IV discontinued, intact, lg3 bleeding controlled, No redness/swelling at site. Pressure dressing applied. Administered Medications: 01/27 23:34 CANCELLED (Duplicate Order): HydroCORTISONE 100 mg IVP once rn 23:43 Drug: D10 in Water [2 mL/kg] 250 ml Route: IVP; Site: right antecubital; lg3 23:48 Follow up: Response: No adverse reaction lg3 23:44 Drug: GlucaGen (glucagon) 1 mg Route: IVP; Site: right antecubital; lg3 23:49 Follow up: Response: No adverse reaction lg3 23:44 Drug: HydroCORTISONE 50 mg Route: IVP; Site: right antecubital; lg3 23:48 Follow up: Response: No adverse reaction lg3 23:45 Not Given (med not avaliable ): D50W 50 ml IVP once; (1 amp) lg3 23:54 Drug: Zofran (Ondansetron) 4 mg Route: IVP; Site: right antecubital; lg3 23:54 Follow up: Response: No adverse reaction lg3 01/28 02:46 Drug: Cipro (ciprofloxacin) 400 mg Volume: 200 ml; Route: IVPB; Infused Over: 60 mins; lg3 Site: right antecubital; 03:54 Follow up: Response: No adverse reaction; IV Status: Completed infusion; IV Intake: lg3 200ml 02:46 Drug: NS 0.9% 500 ml Route: IV; Rate: bolus; Site: right antecubital; lg3 03:53 Follow up: Response: No adverse reaction; IV Status: Completed infusion; IV Intake: lg3 500ml Medication: 01/27 23:46 VIS not applicable for this client. lg3 Intake: 01/28 03:53 IV: 500ml; Total: 500ml. lg3 03:54 IV: 200ml; Total: 700ml. lg3 Outcome: 03:37 Discharge ordered by . rn 03:53 Discharged to home ambulatory, with family. lg3 03:53 Condition: stable 03:53 Discharge instructions given to patient, family, Instructed on discharge instructions, follow up and referral plans. medication usage, Demonstrated understanding of instructions, follow-up care, medications, Prescriptions given X 1. 03:54 Patient left the ED. lg3 Signatures: Khang Lowery MD MD rn Gibson, Lacie, RN RN lg3 Cecile Jones Lauren RN RN ld1
[2022-01-28 04:14] VITALS: TEMP 97.6
[2022-01-28 04:19] VITALS: BP 115/55; O2SAT 99
== END 2022-01-28 03:54 | disposition home or self-care (01) ==
LOC: ER 23:11
DX: E11.65 Type 2 diabetes mellitus with hyperglycemia (principal); N39.0 Urinary tract infection, site not specified; I10 Essential (primary) hypertension
CPT/HCPCS: 36415; 80048; 81003; 81015; 82947; 84145; 87077; 87086; 87088; 87186; 96365; 96375; 99284; J0744; J1610; J1720; J2405; J7040